=== PATIENT | female | born 1995 ===

== ENCOUNTER 2023-05-20 06:05 | Inpatient (IN) | payer MEDICAID, SELFPAY ==
[2023-05-20] VITALS (22 sets, daily range): BP systolic 101–138; BP diastolic 55–91; PULSE 64–106; RESP 15–17; TEMP 36.4–36.8; O2SAT 97; BMI 36.9
[2023-05-20] MEDS: lactated ringers 1,000 ML 999 ML IV (06:00)
[2023-05-20 06:06] LABS: Basophils % 0.2 %; Eosinophils # 0.3 10^3/uL (0.0-0.8); Eosinophils % 1.6 %; Hematocrit 36.3 % (36-47); Lymphocytes # 1.8 10^3/uL (0.8-4.8); Lymphocytes % 11.9 %; Mean Corpuscular HGB Conc 30.9 g/dL (30-55); Mean Corpuscular Hemoglobin 23.4 pg (27-33); Mean Corpuscular Volume 75.9 fl (85-98); Mean Platelet Volume 10.8 fL (7.4-10.4); Monocytes # 0.7 10^3/uL (0.2-0.9); Monocytes % 4.7 %; Neutrophils % 81.1 %; Nucleated Red Blood Cells % 0 %; Platelet Count 333 10^3/cmm (157-399); Red Blood Count 4.78 10^6/uL (3.85-5.65); Red Cell Distribution Width 17.1 % (12.1-15.1); White Blood Count 15.41 10^3/uL (3.29-11.43)
[2023-05-20] MEDS: ampicillin 2,000 MG in sodium chloride 0.9% (plus) 50 ML 100 MG IV (06:09)
[2023-05-20] MEDS: oxytocin 30 UNIT/500 ML BAG 600 UNIT IV (06:48)
--- NOTE | 2023-05-20 07:02 | P.HPUD_ITS ---
Labor & Delivery H&P Update Date of Procedure: May 20, 2023 Date H&P Performed: 05/17/23 Changes to previous documentation: The patient cervix is now 8 cm dilated Admission Diagnosis: 27-year-old 2 para 1-0-0-1 at 38 weeks estimated gestational age in active labor Planned procedure: Vaginal delivery Other information: The patient is a pleasant [place]ene[place]in-speaking female who has had an unremarkable . Her labs have been relatively unremarkable. She is GBS positive. She was trichomonas positive as well. She was treated, and found to be negative after treatment. Otherwise her blood type is O+. Her antibody screen was negative. Her drug screen was negative. She is rubella nonimmune. In the remainder of her labs are within normal limits. Related Problem List Diagnoses (1) 38 weeks gestation of : A&P Assessment and plan (1) 38 weeks gestation of : I anticipate spontaneous vaginal delivery. She desired an epidural, but it is unlikely she will get 1 as she is progressing too quickly. Status: Acute
--- NOTE | 2023-05-20 07:10 | PM.DELIVERY ---
Delivery Note: Date of delivery: May 20, 2023 Pre-delivery diagnoses: 27-year-old 2 para 1-0-0-1 at 38 weeks estimated gestational age presenting in active labor Post-delivery diagnoses: Same Procedure: Spontaneous vaginal delivery Delivering Physician: Joel Gaming Estimated blood loss (mL): 100 Pre-Delivery Course: The patient presented to the hospital in active labor with her cervix dilated to 8 cm. She quickly progressed to complete within about half hour. An amniotomy was performed. Delivery: DELIVERY: The patient progressed to complete without difficulty. She delivered a female with a weight of 7 pounds 1 ounce with Apgars of 8, 9. The baby was delivered from the CRISTIAN position and placed on the mother's abdomen. The cord was then clamped and cut. There was no nuchal cord. There was no meconium. The placenta and 3 vessel cord were delivered intact shortly thereafter. The perineum and vaginal vault were carefully examined. A superficial posterior midline laceration was noted that stop bleeding and did not need repair. Both the mother and the baby were in stable condition. Post-Delivery Status: Good A&P Assessment and plan (1) 38 weeks gestation of : (2) Spontaneous vaginal delivery: I anticipate routine care. Due to her GBS status and inadequate antibiotic coverage, her baby will be here for 48 hours. Coding Level of Care Code Acute Code for Chg Fwd Diagnoses 38 weeks gestation of Z3A.38 Spontaneous vaginal delivery O80
[2023-05-20] MEDS: docusate sodium 100 mg Capsule PO (09:08)
[2023-05-20] MEDS: ibuprofen 800 mg tablet PO ×3 (09:08→20:34)
[2023-05-20] MEDS: prenatal vitamin Capsule 1 CAP PO (09:08)
[2023-05-20 19:39] LABS: Hematocrit 31.9 % (36-47); Mean Corpuscular HGB Conc 30.7 g/dL (30-55); Mean Corpuscular Hemoglobin 23.6 pg (27-33); Mean Corpuscular Volume 76.9 fl (85-98); Mean Platelet Volume 11.5 fL (7.4-10.4); Platelet Count 283 10^3/cmm (157-399); Red Blood Count 4.15 10^6/uL (3.85-5.65); Red Cell Distribution Width 17.2 % (12.1-15.1)
[2023-05-20] MEDS: lanolin oint 7 gm 1 APPLIC TOPICAL (20:35)
[2023-05-21 04:00] VITALS: BP 105/70; PULSE 85; RESP 18; TEMP 36.6
--- NOTE | 2023-05-21 08:16 | P.PN_ITS ---
BULLDOZER OPERATOR Subjective 2 Subjective: Interval history: The patient has done well overall. Her bleeding has been within normal limits. Her pain has been well-controlled. She had some difficulty with breast-feeding last night. She fed the baby the bottle because it was difficult to console. Otherwise she has had no problems. Labor: Station: +1 Amniotic Membrane Status: Ruptured Monitor Mode: External Contraction Pattern: Regular Vitals/I&O/Wt Last Vital Signs Temp 97.8 F 05/21/23 04:00 Pulse 85 05/21/23 04:00 Resp 18 05/21/23 04:00 BP 105/70 05/21/23 04:00 Pulse Ox 97 05/20/23 11:00 O2 Del Method Room Air 05/21/23 04:00 Weight last 48 hrs Weight 183 lb Weight 183 lb Physical Exam 2 Narrative: The patient is alert. She appears comfortable. Her heart has a regular rate and rhythm with no murmurs appreciated. Lungs are clear to auscultation bilaterally. Her fundus is firm and below the umbilicus. Data 05/20/23 18:35 A&P Assessment and plan (1) Spontaneous vaginal delivery: I anticipate routine care. Because of the patient's language barrier, we will keep the patient up tomorrow to ensure that the baby is getting appropriate care and the nurses can assess how she is caring for the baby and communicate appropriately with her. Especially since the baby is having some difficulty with breast-feeding. (2) 38 weeks gestation of : Attestations 2 Medical Necessity Statement*: The patient will be kept for 1 more night to assist with breast-feeding and to give her instruction since that is been more difficult because of the language barrier. Coding Level of Care Code Acute Code for Chg Fwd Diagnoses Spontaneous vaginal delivery O80 38 weeks gestation of Z3A.38
[2023-05-21] MEDS: docusate sodium 100 mg Capsule PO ×2 (09:35→17:50)
[2023-05-21] MEDS: ibuprofen 800 mg tablet PO ×3 (09:35→23:12)
[2023-05-21] MEDS: prenatal vitamin Capsule 1 CAP PO (09:35)
[2023-05-21 10:02] VITALS: BP 117/81; PULSE 87; TEMP 36.9
[2023-05-21 22:10] VITALS: BP 109/76; PULSE 86; RESP 16; TEMP 36.7
[2023-05-22 05:20] VITALS: BP 124/81; PULSE 77; RESP 16; TEMP 36.6
--- NOTE | 2023-05-22 06:42 | PM.OBGYDC ---
Discharge Providers APPLICATION PACKAGING CONSULTANT Date of Admission: 05/20/23 06:05 Date of Discharge: 05/22/23 Attending Provider at Admission: Joel Gaming MD Attending Provider at Discharge: Joel Gaming MD Diagnoses at Discharge Discharge Diagnosis (1) Spontaneous vaginal delivery: Status: Acute (2) 38 weeks gestation of : Status: Acute Reason for Visit Reason for Visit: contractions Hospital Course Hospital Course The patient arrived at the hospital in active labor. She was noted to be 8 cm dilated. Her membranes were ruptured. She progressed to complete and had an unremarkable delivery shortly after arrival to hospital. Her bleeding was within normal limits. Her course was also unremarkable. Her pain was well-controlled. Her bleeding was limited. She had difficulty breast-feeding and elected to proceed with formula. Otherwise there were no complications. Information Peripartum Data: Delivery Method: Vaginal Physical Exam Narrative: The patient is alert. She appears comfortable. Her heart has a regular rate and rhythm with no murmurs appreciated. Lungs are clear to auscultation bilaterally. Her fundus is firm and below the umbilicus. Discharge Data Studies Completed and Pending Laboratory Results WBC 14.00 10^3/uL (3.29-11.43) H 05/20/23 18:35 RBC 4.15 10^6/uL (3.85-5.65) 05/20/23 18:35 Hgb 9.80 g/dL (11.27-16.99) L 05/20/23 18:35 Hct 31.9 % (36-47) L 05/20/23 18:35 MCV 76.9 fl (85-98) L 05/20/23 18:35 MCH 23.6 pg (27-33) L 05/20/23 18:35 MCHC 30.7 g/dL (30-55) 05/20/23 18:35 RDW 17.2 % (12.1-15.1) H 05/20/23 18:35 Plt Count 283 10^3/cmm (157-399) 05/20/23 18:35 MPV 11.5 fL (7.4-10.4) H 05/20/23 18:35 Neut % (Auto) 81.1 % 05/20/23 05:55 Lymph % (Auto) 11.9 % 05/20/23 05:55 [place] % (Auto) 4.7 % 05/20/23 05:55 Eos % (Auto) 1.6 % 05/20/23 05:55 Baso % (Auto) 0.2 % 05/20/23 05:55 Neut # (Auto) 12.50 10^3/uL (1.8-7.7) H 05/20/23 05:55 Lymph # (Auto) 1.8 10^3/uL (0.8-4.8) 05/20/23 05:55 [place] # (Auto) 0.7 10^3/uL (0.2-0.9) 05/20/23 05:55 Eos # (Auto) 0.3 10^3/uL (0.0-0.8) 05/20/23 05:55 Baso # (Auto) 0.0 10^3/uL (0.0-0.1) 05/20/23 05:55 Nucleated RBC % (auto) 0 % 05/20/23 05:55 Nucleated RBCs # 0.0 /100WBC 05/20/23 05:55 Blood Type O Positive 05/20/23 18:35 Rho(D) Type Rh positive 05/20/23 18:35 Antibody Screen Negative 05/20/23 18:35 Vitals Last Vital Signs Temp 97.8 F 05/22/23 05:20 Pulse 77 05/22/23 05:20 Resp 16 05/22/23 05:20 BP 124/81 05/22/23 05:20 Pulse Ox 97 05/20/23 11:00 O2 Del Method Room Air 05/21/23 04:00 Results Labs OB ([facility]): Blood Type O Positive 05/20/23 Antibody Screen Negative 05/20/23 Hct 31.9 % (36-47) L 05/20/23 Hgb 9.80 g/dL (11.27-16.99) L 05/20/23 Rho(D) Type Rh positive 05/20/23 Plt Count 283 10^3/cmm (157-399) 05/20/23 Discharge Plan Discharge Patient Disposition: Home Condition: Stable Prescriptions: New -U 106.5-1 mg Capsule 1 cap PO DAILY Qty: 90 0RF ibuprofen 800 mg Tablet 800 mg PO TID Qty: 30 0RF No Action No Known Home Medications Discharge Orders: Discharge Order (Routine); Ordered 05/22/23 Ordered By: Joel Gaming Referrals: Joel Gaming MD [Physician] - 6 Weeks (The appointment needs to be on a . Thank you) Discharge Diet: Usual diet Discharge Activity: Limit activity as instructed Patient Instructions: Opioid Safety Discharge Attestations APPLICATION PACKAGING CONSULTANT Time Spent in Discharge Care*: less than 30 min Coding Level of Care Code Acute Code for Chg Fwd Diagnoses Spontaneous vaginal delivery O80 38 weeks gestation of Z3A.38
[2023-05-22] MEDS: ibuprofen 800 mg tablet PO (09:39)
[2023-05-22] MEDS: docusate sodium 100 mg Capsule PO (09:39)
[2023-05-22] MEDS: prenatal vitamin Capsule 1 CAP PO (09:39)
[2023-05-22 09:44] VITALS: BP 120/83; PULSE 97; TEMP 36.4
[2023-05-22 11:14] VITALS: BP 120/83; PULSE 97; TEMP 36.4
== END 2023-05-22 11:14 | disposition home or self-care (01) | DRG 807 ==
LOC: OPOB 06:54 → OBGYN 06:54
PROVIDERS: Admitting Provider Family Medicine; Visit Provider Family Medicine
DX: O99.824 Streptococcus B carrier state complicating childbirth (principal); Z37.0 Single live birth; Z3A.38 38 weeks gestation of pregnancy
CPT/HCPCS: 36415; 59025; 59409; 83986; 85025; 85027; 86850; 86900; 98960; 99211; J0290; J2590; J7120